=== PATIENT | female | born 1960 | race Caucasian/White ===

== ENCOUNTER → 2017-08-29 | Outpatient (CLI) | payer OTHER ==
[2017-08-29] MEDS: GADOBUTROL 10 MMOL/10 ML VIAL IV (15:34)
== END | disposition home or self-care (01) ==
LOC: KCIC MRI 14:13
DX: G30.8 Other Alzheimer's disease (principal); F02.80 Dementia in other diseases classified elsewhere, unspecified severity, without behavioral disturbance, psychotic disturbance, mood disturbance, and anxiety
CPT/HCPCS: 70553; A9585